=== PATIENT | male | born 1950 | race Caucasian/White ===

== ENCOUNTER 2016-11-10 12:35 | Emergency (ER) | payer OTHER, MEDICARE, BC ==
--- NOTE | 2016-11-10 13:43 | REP ---
CT Head without contrast HISTORY: Head injury COMPARISON: None Areas of decreased attenuation are present in the periventricular white matter. This represents small-vessel ischemic disease. There is no intraparenchymal hemorrhage, acute infarct, mass or midline shift. The ventricular system and cortical sulci are dilated consistent with minimal volume loss. There is no extra cerebral collection. There is no fracture. The visualized sinuses are clear. IMPRESSION: 1. Small vessel ischemic disease. 2. Minimal volume loss. Signed by Zuhair Trujillo MD 11/10/2016 01:34 P
--- NOTE | 2016-11-10 13:57 | REP ---
MAXILLOFACIAL CT WITHOUT CONTRAST: HISTORY: Facial injury. The sinuses are clear. The osteomeatal units are patent. The middle and inferior nasal turbinates are partially paradoxical. There is very minimal deviation of the nasal septum to the left. The cribriform plate, medial doss of the orbits and optic canals are intact. The carotid canals for a segment of the posterolateral doss of the sphenoid sinus. There is no fracture. Calcifications are present in the tonsils. This is secondary to previous inflammatory disease. IMPRESSION: There is no acute or chronic sinusitis. Signed by Zuhair Trujillo MD 11/10/2016 01:58 P
--- NOTE | 2016-11-10 14:27 | EDDOCDS ---
Nurse's Notes [facility] Name: John Brewer Age: 66 yrs Sex: Male : 1950 Arrival Date: 11/10/2016 Time: 12:35 Bed PR Private MD: DEBRA DELGADO Diagnosis: Fall due to ice and snow;Abrasion, right knee;Postconcussional syndrome Presentation: 11/10 12:38 Presenting complaint: Patient states: yesterday slipped and hit head and nose on a wall srm at [place]. headache all night. denies LOC. no blood thinners. Adult Sepsis Screening: The patient does not have new or worsening altered mentation. Patient's respiratory rate is less than 22. Systolic blood pressure is greater than 100. Patient has a qSOFA score of 0- Negative Sepsis Screen. Suicide/Homicide risk assessment- the patient denies having any suicidal and/or homicidal ideations and does not present with any other emotional, behavioral or mental health complaints. Status: Patient is not a account service associate or dependent. Transition of care: patient was not received from another setting of care. 12:38 Acuity: MEEK Level 4 [facility] 12:38 Method Of Arrival: Walkin/Carried/Asstd [facility] Triage Assessment: 12:42 General: Appears in no apparent distress, Behavior is appropriate for age, cooperative. srm Pain: Pain currently is 7 out of 10 on a pain scale. Derm: swelling and bruising to nose, forehead and bruising under left eye. Musculoskeletal: No deficits noted. Historical: - Allergies: no known allergies; - Home Meds: 1. metformin 1,000 mg Oral tr24 twice a day 2. atorvastatin 40 mg oral tab 1 tab once daily 3. doxazosin 2 mg oral tab 1 tab once daily 4. lisinopril 40 mg Oral tab 1 tab once daily 5. chlorthalidone 25 mg Oral tab 1 tab once daily 6. metoprolol 50mg daily 7. aspirin 81 mg Oral chew 1 tab once daily - PMHx: Diabetes - NIDDM: controlled; Hypercholesterolemia; Hypertension; Sleep Apnea w/ CPAP; - PSHx: CARPAL TUNNEL REPAIR; left knee; Vasectomy; - Social history: Smoking status: Patient states former smoker of tobacco. No barriers to communication noted, The patient speaks fluent Colombian, Speaks appropriately for age. - Family history: Not pertinent. - : The pt / caregiver states he / she is not on anticoagulants. Home medication list is obtained from the patient. - Exposure Risk Screening:: None identified. Screenin:24 Screening information is obtained from the patient. Fall risk: No risks identified. [facility] Assistance ADL's: requires no assistance with activities of daily living. Abuse/DV Screen: The patient / caregiver reports he/she is: not in a situation that causes fear, pain or injury. Nutritional screening: No deficits noted. Advance Directives: There is no active DNR order. home support is adequate. Assessment: 14:22 General: Appears in no apparent distress, Behavior is appropriate for age, cooperative, [facility] first contact with patient, reviewed discharge instructions, encouraged and answered questions, patient denies new problems or complaints, declines offer of further assistance. 14:24 Musculoskeletal: Range of motion intact in all extremities. [facility] Vital Signs: 12:36 BP 129 / 77; Pulse 97; Resp 18; Temp 97.5(O); Pulse Ox 97% on R/A; Weight 111.58 kg; elp Height 5 ft. 8 in. (172.72 cm); Pain 8/10; 14:24 BP 96 / 64; Pulse 85; Resp 16; Temp 97.6; Pulse Ox 96% ; Pain 6/10; [facility] 12:36 Body Mass Index 37.40 (111.58 kg, 172.72 cm) [facility] Vitals: 12:36 Log In Time: November 10, 2016 at 12:34. [facility] ED Course: 12:35 Patient visited by Tomeka Marlow PCA. elp 12:35 Patient moved to Waiting elp 12:36 DEBRA DELGADO is Private Physician. elp 12:37 Patient moved to Pre RCE elp 12:39 Triage Initiated srm 12:43 Patient moved to Triage 1 srm 12:49 [facility] dt4 12:49 Dakota Self MD is Attending Physician. dt4 12:49 Patient visited by Jada Reed PA-C. dt4 13:18 Patient moved to TR1 jb5 13:23 [facility] Payment Agreement was scanned into [employer] and attached to record. pm4 13:45 [facility] and attached to record. pm4 13:55 Patient visited by Jenny Segundo PCA. jb5 13:55 Patient moved to PR jb5 14:01 CT Head Without Contrast Returned. EDMS 14:01 CT Maxilofacial W/out Contrast Returned. EDMS 14:24 The patient / caregiver is instructed regarding the plan of care and ED course. [facility] 14:24 No IV's were initiated during this patient's visit. No procedures done that require [facility] assistance. Order Results: Radiology Order: CT Head Without Contrast Test: CT Head Without Contrast REASON FOR EXAMINATION: fall, head injury; CT Head without contrast; ; HISTORY: Head injury; ; COMPARISON: None; ; Areas of decreased attenuation are present in the periventricular white matter.; This represents small-vessel ischemic disease. There is no intraparenchymal; hemorrhage, acute infarct, mass or midline shift. The ventricular system and; cortical sulci are dilated consistent with minimal volume loss. There is no; extra cerebral collection. There is no fracture. The visualized sinuses are; clear.; ; IMPRESSION:; ; 1. Small vessel ischemic disease.; 2. Minimal volume loss.; ; ; Signed by; Zuhair Trujillo MD 11/10/2016 01:34 P; Radiology Order: CT Maxilofacial W/out Contrast Test: CT Maxilofacial W/out Contrast REASON FOR EXAMINATION: fall, facial injury, ?nasal fx; MAXILLOFACIAL CT WITHOUT CONTRAST:; ; HISTORY: Facial injury.; ; The sinuses are clear. The osteomeatal units are patent. The middle and inferior; nasal turbinates are partially paradoxical. There is very minimal deviation of; the nasal septum to the left. The cribriform plate, medial doss of the orbits; and optic canals are intact. The carotid canals for a segment of the; posterolateral doss of the sphenoid sinus. There is no fracture. Calcifications; are present in the tonsils. This is secondary to previous inflammatory disease.; ; IMPRESSION:; ; There is no acute or chronic sinusitis.; ; ; ; Unreviewed; Outcome: 14:08 Discharge ordered by Provider. dt4 14:24 Discharge Assessment: Patient awake, alert and oriented x 3. No cognitive and/or [facility] functional deficits noted. Patient verbalized understanding of disposition instructions. patient administered narcotics - no. The following High Risk Discharge criteria are identified: None. Discharged to home ambulatory. Condition: good Condition: stable Condition: improved. Discharge instructions given to patient, Instructed on discharge instructions, follow up and referral plans. Demonstrated understanding of instructions, medications, Pt was receptive of discharge instructions/ teaching. No special radiology studies were completed. Property :Personal belongings accompany Pt. 14:27 Patient left the ED. [facility] Signatures: Dispatcher [employer] EDMS Kristi Guzman RN RN srm Baker, Janet, OPERATIONS MGR OPERATIONS MGR jb5 Joan Dsouza RN RN [facility] Tomeka Marlow, OPERATIONS MGR OPERATIONS MGR elp Jada Reed, PA-C PA-C dt4 Anthony Lipscomb, Reg Reg pm4 Corrections: (The following items were deleted from the chart) 14:25 14:22 General: Appears in no apparent distress, [facility] MTDD
--- NOTE | 2016-11-10 14:27 | EDDOCDS ---
Physician Documentation [facility] Name: John Brewer Age: 66 yrs Sex: Male : 1950 Arrival Date: 11/10/2016 Time: 12:35 Bed PR Private MD: DEBRA DELGADO Disposition: 11/10/16 14:08 Discharged to Home/Self Care. Impression: Fall due to ice and snow, Abrasion, right knee, Postconcussional syndrome. - Condition is Stable. - Discharge Instructions: Abrasion, Post-Concussion Syndrome. - Medication Reconciliation, Local Pharmacy Hours form. - Follow up: Emergency Department; When: As needed; Reason: Worsening of conditions. Follow up: Private Physician; When: 2 - 3 days; Reason: Wound/Symptom Recheck, Recheck today's complaints, Continuance of care. - Problem is new. - Symptoms are unchanged. - Notes: THERE WAS NO ABNORMALITIES ON YOUR CT SCANS TODAY. PLEASE FOLLOW UP WITH YOUR PRIMARY CARE PROVIDER IN THE NEXT FEW DAYS TO RECHECK YOUR SYMPTOMS. ANY WORSENING SYMPTOMS, PLEASE RETURN TO THE ER. Historical: - Allergies: no known allergies; - Home Meds: 1. metformin 1,000 mg Oral tr24 twice a day 2. atorvastatin 40 mg oral tab 1 tab once daily 3. doxazosin 2 mg oral tab 1 tab once daily 4. lisinopril 40 mg Oral tab 1 tab once daily 5. chlorthalidone 25 mg Oral tab 1 tab once daily 6. metoprolol 50mg daily 7. aspirin 81 mg Oral chew 1 tab once daily - PMHx: Diabetes - NIDDM: controlled; Hypercholesterolemia; Hypertension; Sleep Apnea w/ CPAP; - PSHx: CARPAL TUNNEL REPAIR; left knee; Vasectomy; - Social history: Smoking status: Patient states former smoker of tobacco. No barriers to communication noted, The patient speaks fluent Arabic, Speaks appropriately for age. - Family history: Not pertinent. - : The pt / caregiver states he / she is not on anticoagulants. Home medication list is obtained from the patient. - Exposure Risk Screening:: None identified. Vital Signs: 11/10 12:36 BP 129 / 77; Pulse 97; Resp 18; Temp 97.5(O); Pulse Ox 97% on R/A; Weight 111.58 kg / elp 245.99 lbs; Height 5 ft. 8 in. (172.72 cm); Pain 8/10; 14:24 BP 96 / 64; Pulse 85; Resp 16; Temp 97.6; Pulse Ox 96% ; Pain 6/10; cjh 12:36 Body Mass Index 37.40 (111.58 kg, 172.72 cm) elp MDM: 13:21 CT Head Without Contrast Ordered. EDMS 13:21 CT Maxilofacial W/out Contrast Ordered. EDMS 13:22 Financial registration complete. pm4 13:23 [facility] Payment Agreement was scanned into [employer] and attached to record. pm4 13:45 [facility] Payment Agreement was scanned into [employer] and attached to record. pm4 Signatures: Dispatcher [employer] EDKristi Crews RN RN [facility] Joan Dsouza RN RN [facility] Jada Reed, PALambertC PA-C dt4 Anthony Lipscomb, Reg Reg pm4 The chart was reviewed and I authenticate all verbal orders and agree with the evaluation and treatment provided.Attachments: 13:23 [facility] Payment Agreement pm4 13:45 [facility] Payment Agreement pm4 MTDD
--- NOTE | 2016-11-14 09:15 | EDDOCDS ---
Physician Documentation [facility] Name: John Brewer Age: 66 yrs Sex: Male : 1950 Arrival Date: 11/10/2016 Time: 12:35 Bed PR Private MD: DEBRA DELGADO Disposition: 11/10/16 14:08 Discharged to Home/Self Care. Impression: Fall due to ice and snow, Abrasion, right knee, Postconcussional syndrome. - Condition is Stable. - Discharge Instructions: Abrasion, Post-Concussion Syndrome. - Medication Reconciliation, Local Pharmacy Hours form. - Follow up: Emergency Department; When: As needed; Reason: Worsening of conditions. Follow up: Private Physician; When: 2 - 3 days; Reason: Wound/Symptom Recheck, Recheck today's complaints, Continuance of care. - Problem is new. - Symptoms are unchanged. - Notes: THERE WAS NO ABNORMALITIES ON YOUR CT SCANS TODAY. PLEASE FOLLOW UP WITH YOUR PRIMARY CARE PROVIDER IN THE NEXT FEW DAYS TO RECHECK YOUR SYMPTOMS. ANY WORSENING SYMPTOMS, PLEASE RETURN TO THE ER. Historical: - Allergies: no known allergies; - Home Meds: 1. metformin 1,000 mg Oral tr24 twice a day 2. atorvastatin 40 mg oral tab 1 tab once daily 3. doxazosin 2 mg oral tab 1 tab once daily 4. lisinopril 40 mg Oral tab 1 tab once daily 5. chlorthalidone 25 mg Oral tab 1 tab once daily 6. metoprolol 50mg daily 7. aspirin 81 mg Oral chew 1 tab once daily - PMHx: Diabetes - NIDDM: controlled; Hypercholesterolemia; Hypertension; Sleep Apnea w/ CPAP; - PSHx: CARPAL TUNNEL REPAIR; left knee; Vasectomy; - Social history: Smoking status: Patient states former smoker of tobacco. No barriers to communication noted, The patient speaks fluent Upper Sorbian, Speaks appropriately for age. - Family history: Not pertinent. - : The pt / caregiver states he / she is not on anticoagulants. Home medication list is obtained from the patient. - Exposure Risk Screening:: None identified. Vital Signs: 11/10 12:36 BP 129 / 77; Pulse 97; Resp 18; Temp 97.5(O); Pulse Ox 97% on R/A; Weight 111.58 kg / elp 245.99 lbs; Height 5 ft. 8 in. (172.72 cm); Pain 8/10; 14:24 BP 96 / 64; Pulse 85; Resp 16; Temp 97.6; Pulse Ox 96% ; Pain 6/10; cjh 12:36 Body Mass Index 37.40 (111.58 kg, 172.72 cm) elp MDM: 13:21 CT Head Without Contrast Ordered. EDMS 13:21 CT Maxilofacial W/out Contrast Ordered. EDMS 13:22 Financial registration complete. pm4 13:23 [facility] Payment Agreement was scanned into [employer] and attached to record. pm4 13:45 [facility] Payment Agreement was scanned into [employer] and attached to record. pm4 11/11 09:52 T-Sheet-- Draft Copy was scanned into [employer] and attached to record. gb Signatures: Dispatcher [employer] EDKristi Crews, RN T[facility] Anabell Malloy, Reg Reg gb Joan Dsouza RN RN [facility] Jada Reed PA-C PASerena dt4 Anthony Lipscomb, Reg Reg pm4 The chart was reviewed and I authenticate all verbal orders and agree with the evaluation and treatment provided.Attachments: 13:45 [facility] Payment Agreement pm4 11/11 09:52 T-Sheet-- Draft Copy gb Chart Complete MTDD
--- NOTE | 2016-11-14 09:15 | EDDOCDS ---
Physician Documentation [facility] Name: John Brewer Age: 66 yrs Sex: Male : 1950 Arrival Date: 11/10/2016 Time: 12:35 Bed PR Private MD: DEBRA DELGADO Disposition: 11/10/16 14:08 Discharged to Home/Self Care. Impression: Fall due to ice and snow, Abrasion, right knee, Postconcussional syndrome. - Condition is Stable. - Discharge Instructions: Abrasion, Post-Concussion Syndrome. - Medication Reconciliation, Local Pharmacy Hours form. - Follow up: Emergency Department; When: As needed; Reason: Worsening of conditions. Follow up: Private Physician; When: 2 - 3 days; Reason: Wound/Symptom Recheck, Recheck today's complaints, Continuance of care. - Problem is new. - Symptoms are unchanged. - Notes: THERE WAS NO ABNORMALITIES ON YOUR CT SCANS TODAY. PLEASE FOLLOW UP WITH YOUR PRIMARY CARE PROVIDER IN THE NEXT FEW DAYS TO RECHECK YOUR SYMPTOMS. ANY WORSENING SYMPTOMS, PLEASE RETURN TO THE ER. Historical: - Allergies: no known allergies; - Home Meds: 1. metformin 1,000 mg Oral tr24 twice a day 2. atorvastatin 40 mg oral tab 1 tab once daily 3. doxazosin 2 mg oral tab 1 tab once daily 4. lisinopril 40 mg Oral tab 1 tab once daily 5. chlorthalidone 25 mg Oral tab 1 tab once daily 6. metoprolol 50mg daily 7. aspirin 81 mg Oral chew 1 tab once daily - PMHx: Diabetes - NIDDM: controlled; Hypercholesterolemia; Hypertension; Sleep Apnea w/ CPAP; - PSHx: CARPAL TUNNEL REPAIR; left knee; Vasectomy; - Social history: Smoking status: Patient states former smoker of tobacco. No barriers to communication noted, The patient speaks fluent Hebrew, Speaks appropriately for age. - Family history: Not pertinent. - : The pt / caregiver states he / she is not on anticoagulants. Home medication list is obtained from the patient. - Exposure Risk Screening:: None identified. Vital Signs: 11/10 12:36 BP 129 / 77; Pulse 97; Resp 18; Temp 97.5(O); Pulse Ox 97% on R/A; Weight 111.58 kg / elp 245.99 lbs; Height 5 ft. 8 in. (172.72 cm); Pain 8/10; 14:24 BP 96 / 64; Pulse 85; Resp 16; Temp 97.6; Pulse Ox 96% ; Pain 6/10; cjh 12:36 Body Mass Index 37.40 (111.58 kg, 172.72 cm) elp MDM: 13:21 CT Head Without Contrast Ordered. EDMS 13:21 CT Maxilofacial W/out Contrast Ordered. EDMS 13:22 Financial registration complete. pm4 13:23 [facility] Payment Agreement was scanned into [employer] and attached to record. pm4 13:45 [facility] Payment Agreement was scanned into [employer] and attached to record. pm4 11/11 09:52 T-Sheet-- Draft Copy was scanned into [employer] and attached to record. gb Signatures: Dispatcher [employer] EDKristi Crews, RN TONE[facility] Anabell Malloy, Reg Reg gb Joan Dsouza RN RN [facility] Jada Reed PA-C PASerena dt4 Anthony Lipscomb, Reg Reg pm4 The chart was reviewed and I authenticate all verbal orders and agree with the evaluation and treatment provided.Attachments: 13:45 [facility] Payment Agreement pm4 11/11 09:52 T-Sheet-- Draft Copy gb Chart Complete MTDD
--- NOTE | 2016-11-14 09:15 | EDDOCDS ---
Nurse's Notes [facility] Name: John Brewer Age: 66 yrs Sex: Male : 1950 Arrival Date: 11/10/2016 Time: 12:35 Bed PR Private MD: DEBRA DELGADO Diagnosis: Fall due to ice and snow;Abrasion, right knee;Postconcussional syndrome Presentation: 11/10 12:38 Presenting complaint: Patient states: yesterday slipped and hit head and nose on a wall srm at [place]. headache all night. denies LOC. no blood thinners. Adult Sepsis Screening: The patient does not have new or worsening altered mentation. Patient's respiratory rate is less than 22. Systolic blood pressure is greater than 100. Patient has a qSOFA score of 0- Negative Sepsis Screen. Suicide/Homicide risk assessment- the patient denies having any suicidal and/or homicidal ideations and does not present with any other emotional, behavioral or mental health complaints. Status: Patient is not a learning services coordinator or dependent. Transition of care: patient was not received from another setting of care. 12:38 Acuity: MEEK Level 4 [facility] 12:38 Method Of Arrival: Walkin/Carried/Asstd [facility] Triage Assessment: 12:42 General: Appears in no apparent distress, Behavior is appropriate for age, cooperative. srm Pain: Pain currently is 7 out of 10 on a pain scale. Derm: swelling and bruising to nose, forehead and bruising under left eye. Musculoskeletal: No deficits noted. Historical: - Allergies: no known allergies; - Home Meds: 1. metformin 1,000 mg Oral tr24 twice a day 2. atorvastatin 40 mg oral tab 1 tab once daily 3. doxazosin 2 mg oral tab 1 tab once daily 4. lisinopril 40 mg Oral tab 1 tab once daily 5. chlorthalidone 25 mg Oral tab 1 tab once daily 6. metoprolol 50mg daily 7. aspirin 81 mg Oral chew 1 tab once daily - PMHx: Diabetes - NIDDM: controlled; Hypercholesterolemia; Hypertension; Sleep Apnea w/ CPAP; - PSHx: CARPAL TUNNEL REPAIR; left knee; Vasectomy; - Social history: Smoking status: Patient states former smoker of tobacco. No barriers to communication noted, The patient speaks fluent Macanese, Speaks appropriately for age. - Family history: Not pertinent. - : The pt / caregiver states he / she is not on anticoagulants. Home medication list is obtained from the patient. - Exposure Risk Screening:: None identified. Screenin:24 Screening information is obtained from the patient. Fall risk: No risks identified. [facility] Assistance ADL's: requires no assistance with activities of daily living. Abuse/DV Screen: The patient / caregiver reports he/she is: not in a situation that causes fear, pain or injury. Nutritional screening: No deficits noted. Advance Directives: There is no active DNR order. home support is adequate. Assessment: 14:22 General: Appears in no apparent distress, Behavior is appropriate for age, cooperative, [facility] first contact with patient, reviewed discharge instructions, encouraged and answered questions, patient denies new problems or complaints, declines offer of further assistance. 14:24 Musculoskeletal: Range of motion intact in all extremities. [facility] Vital Signs: 12:36 BP 129 / 77; Pulse 97; Resp 18; Temp 97.5(O); Pulse Ox 97% on R/A; Weight 111.58 kg; elp Height 5 ft. 8 in. (172.72 cm); Pain 8/10; 14:24 BP 96 / 64; Pulse 85; Resp 16; Temp 97.6; Pulse Ox 96% ; Pain 6/10; [facility] 12:36 Body Mass Index 37.40 (111.58 kg, 172.72 cm) [facility] Vitals: 12:36 Log In Time: November 10, 2016 at 12:34. [facility] ED Course: 12:35 Patient visited by Tomeka Marlow PCA. elp 12:35 Patient moved to Waiting elp 12:36 DEBRA DELGADO is Private Physician. elp 12:37 Patient moved to Pre RCE elp 12:39 Triage Initiated srm 12:43 Patient moved to Triage 1 srm 12:49 [facility] dt[facility] 12:49 Dakota Self MD is Attending Physician. dt4 12:49 Patient visited by Jada Reed PA-C. dt4 13:18 Patient moved to TR1 jb5 13:23 [facility] Payment Agreement was scanned into [employer] and attached to record. pm4 13:45 [facility] Payment Agreement was scanned into [employer] [facility] [employer] and attached to record. pm4 13:55 Patient visited by Jenny Segundo PCA. jb5 13:55 Patient moved to PR jb5 14:01 CT Head Without Contrast Returned. EDMS 14:01 CT Maxilofacial W/out Contrast Returned. EDMS 14:24 The patient / caregiver is instructed regarding the plan of care and ED course. [facility] 14:24 No IV's were initiated during this patient's visit. No procedures done that require [facility] assistance. 11/11 09:52 T-Sheet-- Draft Copy was scanned into [employer] and attached to record. gb Order Results: Radiology Order: CT Head Without Contrast Test: CT Head Without Contrast REASON FOR EXAMINATION: fall, head injury; CT Head without contrast; ; HISTORY: Head injury; ; COMPARISON: None; ; Areas of decreased attenuation are present in the periventricular white matter.; This represents small-vessel ischemic disease. There is no intraparenchymal; hemorrhage, acute infarct, mass or midline shift. The ventricular system and; cortical sulci are dilated consistent with minimal volume loss. There is no; extra cerebral collection. There is no fracture. The visualized sinuses are; clear.; ; IMPRESSION:; ; 1. Small vessel ischemic disease.; 2. Minimal volume loss.; ; ; Signed by; Zuhair Trujillo MD 11/10/2016 01:34 P; Radiology Order: CT Maxilofacial W/out Contrast Test: CT Maxilofacial W/out Contrast REASON FOR EXAMINATION: fall, facial injury, ?nasal fx; MAXILLOFACIAL CT WITHOUT CONTRAST:; ; HISTORY: Facial injury.; ; The sinuses are clear. The osteomeatal units are patent. The middle and inferior; nasal turbinates are partially paradoxical. There is very minimal deviation of; the nasal septum to the left. The cribriform plate, medial doss of the orbits; and optic canals are intact. The carotid canals for a segment of the; posterolateral doss of the sphenoid sinus. There is no fracture. Calcifications; are present in the tonsils. This is secondary to previous inflammatory disease.; ; IMPRESSION:; ; There is no acute or chronic sinusitis.; ; ; Signed by; Zuhair Trujillo MD 11/10/2016 01:58 P; Outcome: 11/10 14:08 Discharge ordered by Provider. dt4 14:24 Discharge Assessment: Patient awake, alert and oriented x 3. No cognitive and/or [facility] functional deficits noted. Patient verbalized understanding of disposition instructions. patient administered narcotics - no. The following High Risk Discharge criteria are identified: None. Discharged to home ambulatory. Condition: good Condition: stable Condition: improved. Discharge instructions given to patient, Instructed on discharge instructions, follow up and referral plans. Demonstrated understanding of instructions, medications, Pt was receptive of discharge instructions/ teaching. No special radiology studies were completed. Property :Personal belongings accompany Pt. 14:27 Patient left the ED. [facility] Signatures: Dispatcher [employer] EDMS Kristi Guzman, RN RN [facility] Anabell Malloy, Reg Reg gb Jenny Segundo, AUTO DESIGN DETAILER AUTO DESIGN DETAILER jb5 Joan Dsouza RN RN [facility] Tomeka Marlow, AUTO DESIGN DETAILER AUTO DESIGN DETAILER vishnup Jada Reed, PASerena PASerena dt4 Anthony Lipscomb, Reg Reg pm4 Corrections: (The following items were deleted from the chart) 14:25 14:22 General: Appears in no apparent distress, [facility] Chart Complete MTDD
== END 2016-11-10 14:27 | disposition home or self-care (01) ==
LOC: M ED 12:35
DX: S00.83XA Contusion of other part of head, initial encounter (principal); F07.81 Postconcussional syndrome; S80.211A Abrasion, right knee, initial encounter; W00.9XXA Unspecified fall due to ice and snow, initial encounter; Y93.9 Activity, unspecified; Y92.524 Gas station as the place of occurrence of the external cause; Y99.9 Unspecified external cause status; E11.9 Type 2 diabetes mellitus without complications; E78.00 Pure hypercholesterolemia, unspecified; I10 Essential (primary) hypertension; G47.30 Sleep apnea, unspecified; Z87.891 Personal history of nicotine dependence; Z79.82 Long term (current) use of aspirin; Z79.899 Other long term (current) drug therapy

== ENCOUNTER → 2017-06-14 | Outpatient (CLI) | payer MEDICARE, BC ==
[~2017-06-14] MED LIST: ATOR40TA75 PO; CHLO25TA PO; DOXA1TAB71 PO; GLIP1TAB49 PO; LISI40TAB PO; METF10004 PO; METO50TA7 PO
== END ==
LOC: M LAB 06:19
PROVIDERS: ATTEND Family Medicine
DX: E11.9 Type 2 diabetes mellitus without complications (principal)

== ENCOUNTER → 2017-07-19 | Outpatient (CLI) | payer MEDICARE, BC | LOC: M LAB 08:02 | PROVIDERS: ATTEND Hospitalist | DX: Z00.00 Encounter for general adult medical examination without abnormal findings (principal) ==

== ENCOUNTER → 2018-03-26 | Outpatient (CLI) | payer MEDICARE, BC ==
[2018-03-26 08:53] LABS: ALBUMIN 3.7 GM/DL (3.2-5.2); ALBUMIN/GLOBULIN RATIO 1.19 (1.00-1.93); ALKALINE PHOSPHATASE 118 U/L (45-117); ALT/SGPT 23 U/L (12-78); ANION GAP 8 MEQ/L (8-16); AST/SGOT 19 U/L (7-37); BILIRUBIN,TOTAL 0.4 MG/DL (0.2-1.0); BLOOD UREA NITROGEN 27 MG/DL (7-18); CALCIUM LEVEL 8.9 MG/DL (8.8-10.2); CARBON DIOXIDE LEVEL 26 MEQ/L (21-32); CHLORIDE LEVEL 107 MEQ/L (98-107); CREATININE FOR GFR 0.92 MG/DL (0.70-1.30); GLOMERULAR FILTRATION RATE > 60.0 (>49); GLUCOSE, FASTING 132 MG/DL (70-100); POTASSIUM SERUM 4.1 MEQ/L (3.5-5.1); SODIUM LEVEL 141 MEQ/L (136-145); TOTAL PROTEIN 6.8 GM/DL (6.4-8.2)
[2018-03-26 08:54] LABS: MALB URINE SIEMENS 13.3 MG/L; MAU/CREAT RATIO 11.2 MCG/MG (0.0-30.0)
[2018-03-26 09:36] LABS: ESTIMATED AVERAGE GLUCOSE 151 MG/DL (60-110); HEMOGLOBIN A1c 6.9 %
== END ==
LOC: M LAB 06:38
DX: I10 Essential (primary) hypertension (principal); E11.65 Type 2 diabetes mellitus with hyperglycemia
CPT/HCPCS: 80053

== ENCOUNTER → 2018-08-06 | Outpatient (CLI) | payer MEDICARE, BC ==
[2018-08-06 08:01] LABS: ESTIMATED AVERAGE GLUCOSE 140 MG/DL (60-110); HEMOGLOBIN A1c 6.5 %
[2018-08-06 08:03] LABS: MALB URINE SIEMENS 16.2 MG/L
[2018-08-06 08:07] LABS: MAU/CREAT RATIO 15.1 MCG/MG (0.0-30.0)
== END ==
LOC: M LAB 06:43
DX: E11.9 Type 2 diabetes mellitus without complications (principal)
CPT/HCPCS: 83036

== ENCOUNTER → 2021-10-10 | Outpatient (CLI) | payer MEDICARE, BC ==
[~2021-10-10] MED LIST changes: -DOXA1TAB71 PO; +DOXA2TAB3 PO; -GLIP1TAB49 PO; +GLIP5TAB20 PO; +ISOVUE-300 61% 50ML VIAL As Ordered ONE; +LIDOCAINE 1% MDV 20ML VIAL As Ordered ONE; +LISI40TA4 PO; -LISI40TAB PO; +TRIAMCINOLONE ACETONIDE SUSP 40 MG/ML VIAL (J3301) As Ordered ONE
--- NOTE | 2021-10-10 13:43 | REP ---
INDICATION: OSTEOARTHRITIS. COMPARISON: None TECHNIQUE: The procedure was performed by MAYITO Frye, under the direct supervision of Dr. Mills. The benefits and risks of the procedure were explained to the patient, and an informed consent was obtained. Directly prior to the start of the procedure, a formal time-out was completed in the procedure room. The right shoulder joint space was localized using fluoroscopic guidance. The skin was prepped and draped in a sterile fashion. Approximately 5 mL of 1% Lidocaine 10 mg/ml was used as a local anesthetic. Using fluoroscopic guidance, a #22 gauge spinal needle was inserted and advanced into the right shoulder joint space. Approximately 3 mL of Isovue 300 was injected to verify placement. Six mL of a solution containing 5 mL 1% lidocaine 10 mg/ml and 1 mL Kenalog 40 mg/mL was injected into the joint space. The needle was removed and hemostasis was achieved. FINDINGS: The patient tolerated the procedure well and there were no immediate complications. IMPRESSION: 1. Technically successful right shoulder injection. 0.1 minutes of fluoroscopy time was utilized for this procedure. Some fluoroscopic images are performed with last image hold technology. These images require no additional radiation. <Electronically signed by Valerie Merritt > 10/10/21 1328 <Electronically signed by Osman Mills > 10/10/21 [id number]
== END ==
LOC: M RADPRO 10:36
PROVIDERS: ATTEND Physician Assistant
DX: M19.011 Primary osteoarthritis, right shoulder (principal)
CPT/HCPCS: 20610; 77002; J3301; Q9967

== ENCOUNTER → 2022-03-03 | Outpatient (CLI) | payer MEDICARE, BC ==
[~2022-03-03] MED LIST changes: -ISOVUE-300 61% 50ML VIAL As Ordered ONE; -LIDOCAINE 1% MDV 20ML VIAL As Ordered ONE; -TRIAMCINOLONE ACETONIDE SUSP 40 MG/ML VIAL (J3301) As Ordered ONE
[2022-03-03 11:32] LABS: HEMATOCRIT 40.9 % (42.0-52.0); HEMOGLOBIN 13.4 g/dl (13.5-17.5); MEAN CORPUSCULAR HEMOGLOBIN 28.5 pg (27.0-33.0); MEAN CORPUSCULAR HGB CONC 32.8 g/dl (32.0-36.5); MEAN CORPUSCULAR VOLUME 86.8 fl (80.0-96.0); PLATELET COUNT, AUTOMATED 196 10^3/uL (150-450); RED BLOOD COUNT 4.71 10^6/uL (4.30-6.10); WHITE BLOOD COUNT 8.9 10^3/uL (4.0-10.0)
[2022-03-03 12:01] LABS: BLOOD UREA NITROGEN 31 MG/DL (7-18); CALCIUM LEVEL 9.3 MG/DL (8.8-10.2); CARBON DIOXIDE LEVEL 30 MEQ/L (21-32); CHLORIDE LEVEL 106 MEQ/L (98-107); CREATININE FOR GFR 1.14 MG/DL (0.70-1.30); GLOMERULAR FILTRATION RATE > 60.0 (>42); GLUCOSE, FASTING 171 MG/DL (70-100); POTASSIUM SERUM 4.8 MEQ/L (3.5-5.1); SODIUM LEVEL 139 MEQ/L (136-145)
== END ==
LOC: M EKG 10:43
PROVIDERS: ATTEND Orthopaedic Surgery
DX: M43.16 Spondylolisthesis, lumbar region (principal)

== ENCOUNTER 2022-03-20 11:29 | Inpatient (IN) | payer MEDICARE, BC ==
[~2022-03-20] VITALS: Ht 172.7 cm; Wt 109.1 kg
[2022-03-20 13:01] LABS: BASO % 0.2 % (0.0-1.0); EOS % 0.2 % (0.0-3.0); HEMATOCRIT 33.7 % (42.0-52.0); HEMOGLOBIN 10.9 g/dl (13.5-17.5); LYMPH # 1.2 10^3/uL (1.5-5.0); LYMPH % 12.6 % (24.0-44.0); MEAN CORPUSCULAR HEMOGLOBIN 28.6 pg (27.0-33.0); MEAN CORPUSCULAR HGB CONC 32.3 g/dl (32.0-36.5); MEAN CORPUSCULAR VOLUME 88.5 fl (80.0-96.0); MONO # 0.9 10^3/uL (0.0-0.8); MONO % 9.5 % (2.0-8.0); NEUTROPHILS # 7.1 10^3/uL (1.5-8.5); PLATELET COUNT, AUTOMATED 190 10^3/uL (150-450); RED BLOOD COUNT 3.81 10^6/uL (4.30-6.10); WHITE BLOOD COUNT 9.3 10^3/uL (4.0-10.0)
[2022-03-20 13:39] LABS: BILIRUBIN,TOTAL 0.8 MG/DL (0.2-1.0); C REACTIVE PROTEIN QUANTITATIV 22.4 MG/DL (0.00-0.30); CALCIUM LEVEL 8.9 MG/DL (8.8-10.2); CREATININE FOR GFR 1.28 MG/DL (0.70-1.30); POTASSIUM SERUM 4.3 MEQ/L (3.5-5.1); TOTAL PROTEIN 6.4 GM/DL (6.4-8.2)
[2022-03-20 14:05] LABS: ERYTHROCYTE SEDIMENTATION RATE 75 mm/hr (0-20)
[2022-03-20] MEDS ORDERED: GI COCKTAIL 50ML BTL(HYOSCYAMINE/MAALOX/LIDOCAINE VISCOUS)(1:3:1) PO ONE (16:15)
[2022-03-20] MEDS ORDERED: diazePAM 2 MG TAB PO ONE (17:25)
[2022-03-20 19:30] LABS: RSV AMPLIFICATION NEGATIVE (NEGATIVE)
[2022-03-20] MEDS: HumaLOG INSULIN (NovoLOG) PER UNIT SC SCH (21:00)
[2022-03-20] MEDS ORDERED: OXYC1TAB23 PO (21:21)
[2022-03-20] MEDS ORDERED: GLUCOSE 4GM CHEW TABLET PO PRN (21:35)
[2022-03-20] MEDS ORDERED: ACETAMINOPHEN TAB 650MG DOSE (2X325MG) PO PRN (21:35)
[2022-03-20] MEDS ORDERED: GLUCAGON INJ 1MG VIAL SC PRN (21:35)
[2022-03-20] MEDS ORDERED: DEXTROSE 50% 50 ML SYRINGE IV PRN (21:35)
[2022-03-20] MEDS ORDERED: GABA800T4 PO (23:08)
[2022-03-20] MEDS ORDERED: TOPR50TA PO (23:08)
[2022-03-20] MEDS ORDERED: OXYC-517 PO (23:08)
[2022-03-20] MEDS ORDERED: ADV250INH INH (23:08)
[2022-03-20] MEDS ORDERED: ALBU8.5H INH (23:08)
[2022-03-20] MEDS ORDERED: FINA5TAB2 PO (23:08)
[2022-03-20] MEDS ORDERED: ASPI-161 PO (23:08)
[2022-03-20] MEDS ORDERED: HOME MED LIST COMPLETE! XX SCH (23:10)
[2022-03-20 23:17] VITALS: BP 142/63
[2022-03-21] MEDS ORDERED: ADVAIR HFA 115/21MCG INHALER INH PRN (00:10)
[2022-03-21] MEDS ORDERED: ALBUTEROL 90 MCG/ACT 8GM HFA INHALER INH PRN (00:10)
[2022-03-21] MEDS ORDERED: NS 1,000 ML IV ONE (00:15)
[2022-03-21 00:36] VITALS: BP 138/66
[2022-03-21] MEDS: lisinopriL 40MG TAB PO SCH ×2 (00:59→21:29)
[2022-03-21] MEDS: ATORVASTATIN 20 MG TAB PO SCH ×2 (00:59→21:29)
[2022-03-21] MEDS: HYDROMORPHONE HCL 0.5 MG/ 0.5 ML SYRINGE (J1170 PER 1) IV PRN ×2 (02:10→05:36)
[2022-03-21] MEDS ORDERED: GABAPENTIN 400MG CAP PO ONE (02:45)
[2022-03-21] MEDS: HEPARIN SOD (PORCINE) 5000UNITS/ML 1ML VIAL/SYRINGE SC SCH ×3 (05:34→21:29)
[2022-03-21 06:00] VITALS: BP 134/70
[2022-03-21 07:07] LABS: BLOOD UREA NITROGEN 24 MG/DL (7-18); CALCIUM LEVEL 8.5 MG/DL (8.8-10.2); CARBON DIOXIDE LEVEL 28 MEQ/L (21-32); CHLORIDE LEVEL 106 MEQ/L (98-107); CREATININE FOR GFR 0.98 MG/DL (0.70-1.30); GLOMERULAR FILTRATION RATE > 60.0 (>42); GLUCOSE, FASTING 141 MG/DL (70-100); POTASSIUM SERUM 3.8 MEQ/L (3.5-5.1); SODIUM LEVEL 138 MEQ/L (136-145)
[2022-03-21] MEDS ORDERED: GABAPENTIN 400MG CAP PO SCH ×2 (09:00→16:00)
[2022-03-21] MEDS: ASPIRIN 81MG ENTERIC TABLET PO SCH (09:11)
[2022-03-21] MEDS: FINASTERIDE 5MG TAB PO SCH (09:11)
[2022-03-21] MEDS: HumaLOG INSULIN (NovoLOG) PER UNIT SC SCH ×4 (09:11→21:00)
[2022-03-21] MEDS: DOXAZOSIN MESYLATE 1 MG TAB PO SCH (09:11)
[2022-03-21] MEDS: CHLORTHALIDONE 12.5MG PER 1/2 TABLET PO SCH (09:11)
[2022-03-21] MEDS: METOPROLOL SUCC (TopROL XL) 50MG **XL** TAB PO SCH (09:12)
[2022-03-21] MEDS: oxyCODONE 5MG TAB PO PRN (10:13)
[2022-03-21 14:00] VITALS: BP 120/69
[2022-03-21] MEDS: GABAPENTIN 300 MG CAP PO SCH ×2 (15:14→21:29)
[2022-03-21] MEDS ORDERED: SENOKOT S TAB PO PRN (15:50)
[2022-03-21 22:00] VITALS: BP 141/73
[2022-03-22] MEDS: oxyCODONE 5MG TAB PO PRN (00:28)
[2022-03-22 06:00] VITALS: BP 114/69
[2022-03-22 06:26] LABS: BASO % 0.5 % (0.0-1.0); EOS # 0.1 10^3/uL (0.0-0.5); EOS % 1.5 % (0.0-3.0); HEMATOCRIT 31.5 % (42.0-52.0); LYMPH # 1.5 10^3/uL (1.5-5.0); MEAN CORPUSCULAR HEMOGLOBIN 28.3 pg (27.0-33.0); MEAN CORPUSCULAR HGB CONC 31.7 g/dl (32.0-36.5); MEAN CORPUSCULAR VOLUME 89.2 fl (80.0-96.0); MONO # 0.7 10^3/uL (0.0-0.8); MONO % 11.1 % (2.0-8.0); NEUTROPHILS # 3.7 10^3/uL (1.5-8.5); NEUTROPHILS % 61.4 % (36.0-66.0); PLATELET COUNT, AUTOMATED 212 10^3/uL (150-450); RED BLOOD COUNT 3.53 10^6/uL (4.30-6.10)
[2022-03-22] MEDS: HEPARIN SOD (PORCINE) 5000UNITS/ML 1ML VIAL/SYRINGE SC SCH ×2 (06:36→14:00)
[2022-03-22 06:48] LABS: BLOOD UREA NITROGEN 36 MG/DL (7-18); CALCIUM LEVEL 8.6 MG/DL (8.8-10.2); CARBON DIOXIDE LEVEL 28 MEQ/L (21-32); CHLORIDE LEVEL 105 MEQ/L (98-107); CREATININE FOR GFR 1.24 MG/DL (0.70-1.30); GLOMERULAR FILTRATION RATE > 60.0 (>42); GLUCOSE, FASTING 186 MG/DL (70-100); MAGNESIUM LEVEL 2.3 MG/DL (1.8-2.4); POTASSIUM SERUM 3.9 MEQ/L (3.5-5.1); SODIUM LEVEL 138 MEQ/L (136-145)
[2022-03-22] MEDS ORDERED: BISACODYL 10 MG SUPP PR ONE (07:15)
[2022-03-22] MEDS: HumaLOG INSULIN (NovoLOG) PER UNIT SC SCH ×2 (08:09→12:43)
[2022-03-22] MEDS: CHLORTHALIDONE 12.5MG PER 1/2 TABLET PO SCH (08:10)
[2022-03-22] MEDS: DOXAZOSIN MESYLATE 1 MG TAB PO SCH (08:12)
[2022-03-22] MEDS: ASPIRIN 81MG ENTERIC TABLET PO SCH (08:13)
[2022-03-22 08:14] VITALS: BP 160/84
[2022-03-22] MEDS: METOPROLOL SUCC (TopROL XL) 50MG **XL** TAB PO SCH (08:14)
[2022-03-22] MEDS: FINASTERIDE 5MG TAB PO SCH (08:14)
[2022-03-22] MEDS ORDERED: GABAPENTIN 400MG CAP PO SCH (09:00)
[2022-03-22] MEDS ORDERED: MM S100C PO (10:59)
[2022-03-22] MEDS ORDERED: MIRA3350 PO (10:59)
== END 2022-03-22 14:35 | disposition home or self-care (01) | DRG 71 ==
LOC: M ED 11:29 → M ED INP 20:47 → ENRESERV 21:44 → M MSPAV 22:46
PROVIDERS: ADMIT Internal Medicine; ATTEND Internal Medicine
DX: G93.40 Encephalopathy, unspecified (principal); F19.230 Other psychoactive substance dependence with withdrawal, uncomplicated; E11.9 Type 2 diabetes mellitus without complications; I12.9 Hypertensive chronic kidney disease with stage 1 through stage 4 chronic kidney disease, or unspecified chronic kidney disease; J45.909 Unspecified asthma, uncomplicated; E78.00 Pure hypercholesterolemia, unspecified; M54.16 Radiculopathy, lumbar region; N18.30 Chronic kidney disease, stage 3 unspecified; Z79.82 Long term (current) use of aspirin; Z79.899 Other long term (current) drug therapy; K59.00 Constipation, unspecified

== ENCOUNTER → 2022-08-23 | Outpatient (CLI) | payer MEDICARE, BC ==
[~2022-08-23] MED LIST changes: +ADV250INH INH; +ALBU8.5H INH; +ASPI-161 PO; +FINA5TAB2 PO; +GABA800T4 PO; +ISOVUE-300 61% 50ML VIAL ONE; +LIDOCAINE 1% MDV 20ML VIAL ONE; +MIRA3350 PO; +MM S100C PO; +OXYC-517 PO; +OXYC1TAB23 PO; +TOPR50TA PO; +methylPREDNISolone SUSP 40MG/ML 1ML VIAL (DEPO MEDROL) ONE
== END ==
LOC: M PLAIMG 14:24 → M RADPRO 14:24
PROVIDERS: ATTEND Physician Assistant
DX: M16.11 Unilateral primary osteoarthritis, right hip (principal)
CPT/HCPCS: 20610; 76000; J1030; Q9967

== ENCOUNTER → 2022-12-11 | Outpatient (CLI) | payer MEDICARE, BC ==
[~2022-12-11] MED LIST changes: -ISOVUE-300 61% 50ML VIAL ONE; -LIDOCAINE 1% MDV 20ML VIAL ONE; -methylPREDNISolone SUSP 40MG/ML 1ML VIAL (DEPO MEDROL) ONE
== END ==
LOC: M LAB 10:30
PROVIDERS: ATTEND Nurse Practitioner Family
DX: R15.9 Full incontinence of feces (principal); R19.7 Diarrhea, unspecified

== ENCOUNTER → 2023-01-04 | Outpatient (CLI) | payer MEDICARE, BC | LOC: M LABSMTC 09:16 | PROVIDERS: ATTEND Anesthesiology | DX: Z01.812 Encounter for preprocedural laboratory examination (principal) ==

== ENCOUNTER 2023-01-09 06:49 | Day surgery (SDC) | payer MEDICARE, BC ==
[~2023-01-09] VITALS: Ht 172.7 cm; Wt 110.2 kg
[~2023-01-09 06:49] MED LIST changes: +NS 1,000 ML IV ONE
[2023-01-09] MEDS ORDERED: LIDOCAINE 2% 100MG/5ML SDV (FOR ANES.) As Ordered ONE (08:24)
[2023-01-09] MEDS ORDERED: propofoL 200 MG/20 ML VIAL As Ordered ONE ×2 (08:24→08:31)
[2023-01-09] MEDS ORDERED: ESMOLOL INJ 100MG/10ML VIAL As Ordered ONE (08:33)
[2023-01-09 09:20] VITALS: BP 128/63
== END 2023-01-09 09:37 | disposition home or self-care (01) ==
LOC: M OPP 06:49
PROVIDERS: ATTEND Internal Medicine Gastroenterology
DX: Z12.11 Encounter for screening for malignant neoplasm of colon (principal); Z86.010 Personal history of colon polyps; D12.6 Benign neoplasm of colon, unspecified; K64.4 Residual hemorrhoidal skin tags; K64.8 Other hemorrhoids; K44.9 Diaphragmatic hernia without obstruction or gangrene; K21.00 Gastro-esophageal reflux disease with esophagitis, without bleeding; K31.89 Other diseases of stomach and duodenum; K29.70 Gastritis, unspecified, without bleeding; I10 Essential (primary) hypertension; E11.9 Type 2 diabetes mellitus without complications; G47.33 Obstructive sleep apnea (adult) (pediatric); Z79.02 Long term (current) use of antithrombotics/antiplatelets; Z79.82 Long term (current) use of aspirin; Z79.84 Long term (current) use of oral hypoglycemic drugs; Z79.51 Long term (current) use of inhaled steroids; Z79.891 Long term (current) use of opiate analgesic; Z79.899 Other long term (current) drug therapy; Z85.46 Personal history of malignant neoplasm of prostate; Z87.891 Personal history of nicotine dependence; Z80.1 Family history of malignant neoplasm of trachea, bronchus and lung

== ENCOUNTER → 2023-02-07 | Outpatient (CLI) | payer MEDICARE, BC ==
[~2023-02-07] MED LIST changes: +BICA50TA9 PO; +FARX1TAB3 PO; +IRON325T9 PO; +MAGN400C PO; -NS 1,000 ML IV ONE; +OMEP-173 PO
== END ==
LOC: M ONCR 14:43
PROVIDERS: ATTEND General Practice
DX: C61 Malignant neoplasm of prostate (principal); N40.1 Benign prostatic hyperplasia with lower urinary tract symptoms; R35.1 Nocturia; R35.0 Frequency of micturition; R19.4 Change in bowel habit; N52.9 Male erectile dysfunction, unspecified; E11.9 Type 2 diabetes mellitus without complications; I10 Essential (primary) hypertension; E78.5 Hyperlipidemia, unspecified; Z79.82 Long term (current) use of aspirin; Z79.84 Long term (current) use of oral hypoglycemic drugs; Z79.899 Other long term (current) drug therapy; Z87.891 Personal history of nicotine dependence

== ENCOUNTER → 2023-02-14 | Outpatient (REF) | payer MEDICARE, BC | LOC: M LAB REF 13:06 | PROVIDERS: ATTEND Nurse Practitioner Family | DX: R19.7 Diarrhea, unspecified (principal) ==

== ENCOUNTER → 2023-02-27 | Outpatient (CLI) | payer MEDICARE, BC ==
[~2023-02-27] MED LIST changes: +CIPR750T2 PO; +LIDOCAINE 2% MDV 20ML VIAL SC ONE; +LIDOCAINE VISCOUS 2% SOLN 15ML UDC TOP ONE; +LORA1TAB4 PO
[2023-02-27 14:26] VITALS: BP 100/61
== END ==
LOC: M ONCR 13:46
PROVIDERS: ATTEND General Practice
DX: C61 Malignant neoplasm of prostate (principal)
CPT/HCPCS: 55874; 55876; A4648; C1889

== ENCOUNTER → 2023-03-13 | Outpatient (CLI) | payer MEDICARE, BC ==
[~2023-03-13] VITALS: Ht 175.3 cm; Wt 112.7 kg
[~2023-03-13] MED LIST changes: +LEUPROLIDE 45MG SYRINGE KIT (LUPRON DEPOT) (FOR ONCOLOGY) IM ONE; -LIDOCAINE 2% MDV 20ML VIAL SC ONE; -LIDOCAINE VISCOUS 2% SOLN 15ML UDC TOP ONE; +LORA1TAB23 PO; -LORA1TAB4 PO
== END ==
LOC: M ONCR 13:46
PROVIDERS: ATTEND General Practice
DX: C61 Malignant neoplasm of prostate (principal)
CPT/HCPCS: 96402; G0463; J9217

== ENCOUNTER → 2023-04-04 | Outpatient (RCR) | payer MEDICARE, BC ==
[~2023-04-04] MED LIST changes: -LEUPROLIDE 45MG SYRINGE KIT (LUPRON DEPOT) (FOR ONCOLOGY) IM ONE
== END ==
LOC: M ONCR 03-13 13:47
PROVIDERS: ATTEND General Practice
DX: C61 Malignant neoplasm of prostate (principal)

== ENCOUNTER 2023-05-01 14:18 | Outpatient (RCR) | payer MEDICARE, BC ==
[~2023-05-01 14:18] MED LIST changes: +FLOM0.4C39 PO
== END 2023-05-04 ==
LOC: M ONCR 14:18
PROVIDERS: ATTEND General Practice
DX: C61 Malignant neoplasm of prostate (principal)

== ENCOUNTER → 2023-07-25 | Outpatient (CLI) | payer MEDICARE, BC ==
[~2023-07-25] MED LIST changes: -DOXA2TAB3 PO; +DOXA2TAB61 PO
[2023-07-25 12:33] LABS: PROSTATIC SPECIFIC AG MONITOR 0.04 NG/ML (< 4.00)
== END ==
LOC: M ONCR 11:08
PROVIDERS: ATTEND Radiology Radiation Oncology
DX: C61 Malignant neoplasm of prostate (principal)

== ENCOUNTER → 2023-08-29 | Outpatient (CLI) | payer MEDICARE, BC | LOC: M SLEEP 20:00 | PROVIDERS: ATTEND Nurse Practitioner Family | DX: G47.61 Periodic limb movement disorder (principal) ==

== ENCOUNTER → 2023-09-13 | Outpatient (CLI) | payer MEDICARE, BC | LOC: M SLEEP 20:00 | PROVIDERS: ATTEND Nurse Practitioner Family | DX: G47.31 Primary central sleep apnea (principal); G47.61 Periodic limb movement disorder ==

== ENCOUNTER → 2023-10-09 | Outpatient (CLI) | payer MEDICARE, BC | LOC: M SLEEP 20:00 | PROVIDERS: ATTEND Nurse Practitioner Family | DX: G47.33 Obstructive sleep apnea (adult) (pediatric) (principal) ==

== ENCOUNTER → 2024-01-25 | Outpatient (CLI) | payer MEDICARE, BC ==
[~2024-01-25] MED LIST changes: -ASPI-161 PO; +ASPI-615 PO; +FERR325T14 PO; -IRON325T9 PO
[2024-01-25 11:18] LABS: PROSTATIC SPECIFIC AG MONITOR 0.04 NG/ML (< 4.00)
== END ==
LOC: M ONCR 09:44
PROVIDERS: ATTEND General Practice
DX: C61 Malignant neoplasm of prostate (principal)

== ENCOUNTER → 2024-01-30 | Outpatient (CLI) | payer MEDICARE, BC | LOC: M ONCR 14:24 | PROVIDERS: ATTEND General Practice | DX: C61 Malignant neoplasm of prostate (principal); Z79.51 Long term (current) use of inhaled steroids; Z79.899 Other long term (current) drug therapy; Z87.891 Personal history of nicotine dependence; Z92.29 Personal history of other drug therapy; Z92.3 Personal history of irradiation ==

== ENCOUNTER → 2024-05-22 | Outpatient (REF) | payer MEDICARE, BC ==
[~2024-05-22] MED LIST changes: +BICA50TA4 PO; -BICA50TA9 PO
== END ==
LOC: M LAB REF 10:56
PROVIDERS: ATTEND Nurse Practitioner Family
DX: R19.7 Diarrhea, unspecified (principal)

== ENCOUNTER → 2024-07-28 | Outpatient (CLI) | payer MEDICARE, BC ==
[~2024-07-28] MED LIST changes: +GABA-1635 PO; -GABA800T4 PO
== END ==
LOC: M PAIN 08:00
PROVIDERS: ATTEND Nurse Practitioner Family
DX: M51.16 Intervertebral disc disorders with radiculopathy, lumbar region (principal); M96.1 Postlaminectomy syndrome, not elsewhere classified; G89.29 Other chronic pain; M25.551 Pain in right hip; E11.40 Type 2 diabetes mellitus with diabetic neuropathy, unspecified; I10 Essential (primary) hypertension; M17.12 Unilateral primary osteoarthritis, left knee; E78.5 Hyperlipidemia, unspecified; G47.30 Sleep apnea, unspecified; K21.9 Gastro-esophageal reflux disease without esophagitis; Z85.46 Personal history of malignant neoplasm of prostate; Z87.891 Personal history of nicotine dependence; Z79.1 Long term (current) use of non-steroidal anti-inflammatories (NSAID); Z79.84 Long term (current) use of oral hypoglycemic drugs; Z79.82 Long term (current) use of aspirin; Z79.899 Other long term (current) drug therapy

== ENCOUNTER 2024-08-07 15:05 | Outpatient (CLI) | payer MEDICARE, BC ==
[2024-08-07 16:00] VITALS: BP 126/71; O2SAT 99
[2024-08-07] MEDS: FECAL MICROBIOTA, LIVE-JSLM 150ML BAG (REBYOTA) RC ONE (16:28)
== END 2024-08-07 16:55 ==
LOC: M INFU 15:05
PROVIDERS: ATTEND Nurse Practitioner Family
DX: A04.72 Enterocolitis due to Clostridium difficile, not specified as recurrent (principal)
CPT/HCPCS: G0455; J1440

== ENCOUNTER → 2024-08-13 | Outpatient (CLI) | payer MEDICARE, BC ==
[~2024-08-13] MED LIST changes: +PROHANCE 279.3MG/ML 15ML VIAL As Ordered ONE; +PROHANCE 279.3MG/ML 5ML VIAL As Ordered ONE
== END ==
LOC: M RAD 14:22
PROVIDERS: ATTEND Nurse Practitioner Family
DX: M54.16 Radiculopathy, lumbar region (principal); M96.1 Postlaminectomy syndrome, not elsewhere classified
CPT/HCPCS: 72158; A9576

== ENCOUNTER → 2024-08-19 | Outpatient (CLI) | payer MEDICARE, BC ==
[~2024-08-19] MED LIST changes: -PROHANCE 279.3MG/ML 15ML VIAL As Ordered ONE; -PROHANCE 279.3MG/ML 5ML VIAL As Ordered ONE
== END ==
LOC: M PAIN 14:45
PROVIDERS: ATTEND Nurse Practitioner Family
DX: M96.1 Postlaminectomy syndrome, not elsewhere classified (principal); M48.061 Spinal stenosis, lumbar region without neurogenic claudication; M51.16 Intervertebral disc disorders with radiculopathy, lumbar region; G89.29 Other chronic pain; E11.40 Type 2 diabetes mellitus with diabetic neuropathy, unspecified; I10 Essential (primary) hypertension; M17.12 Unilateral primary osteoarthritis, left knee; E78.5 Hyperlipidemia, unspecified; G47.30 Sleep apnea, unspecified; K21.9 Gastro-esophageal reflux disease without esophagitis; Z87.891 Personal history of nicotine dependence; Z79.1 Long term (current) use of non-steroidal anti-inflammatories (NSAID); Z79.84 Long term (current) use of oral hypoglycemic drugs; Z79.82 Long term (current) use of aspirin; Z79.899 Other long term (current) drug therapy

== ENCOUNTER → 2024-10-17 | Outpatient (CLI) | payer MEDICARE, BC ==
[~2024-10-17] MED LIST changes: -ADV250INH INH; +ADVA1AER9 INH; +ISOVUE-M 300 61% 15ML VIAL As Ordered ONE; +LIDOCAINE 1% SDV 30ML VIAL As Ordered ONE; +NORCO, ANEXSIA 5/325MG TABLET (HYDROcodone/ACETAMINOPHEN) As Ordered ONE; +dexAMETHasone 10MG/1ML VIAL PRES.FREE As Ordered ONE; +diazePAM 5MG TABLET As Ordered ONE
== END ==
LOC: M PAIN 13:00
PROVIDERS: ATTEND Anesthesiology
DX: M51.16 Intervertebral disc disorders with radiculopathy, lumbar region (principal); G89.29 Other chronic pain; E11.42 Type 2 diabetes mellitus with diabetic polyneuropathy; I10 Essential (primary) hypertension; M17.12 Unilateral primary osteoarthritis, left knee; E78.5 Hyperlipidemia, unspecified; K21.9 Gastro-esophageal reflux disease without esophagitis; Z87.891 Personal history of nicotine dependence; Z79.84 Long term (current) use of oral hypoglycemic drugs; Z79.82 Long term (current) use of aspirin; Z79.899 Other long term (current) drug therapy
CPT/HCPCS: 62323; J1100; Q9967

== ENCOUNTER → 2025-01-29 | Outpatient (CLI) | payer MEDICARE, BC ==
[~2025-01-29] MED LIST changes: +GLIP-318 PO; -GLIP5TAB20 PO; -ISOVUE-M 300 61% 15ML VIAL As Ordered ONE; -LIDOCAINE 1% SDV 30ML VIAL As Ordered ONE; -NORCO, ANEXSIA 5/325MG TABLET (HYDROcodone/ACETAMINOPHEN) As Ordered ONE; -dexAMETHasone 10MG/1ML VIAL PRES.FREE As Ordered ONE; -diazePAM 5MG TABLET As Ordered ONE
== END ==
LOC: M ONCR 13:46
PROVIDERS: ATTEND General Practice
DX: C61 Malignant neoplasm of prostate (principal); Z79.82 Long term (current) use of aspirin; Z79.84 Long term (current) use of oral hypoglycemic drugs; Z79.85 Long-term (current) use of injectable non-insulin antidiabetic drugs; Z86.19 Personal history of other infectious and parasitic diseases; Z87.891 Personal history of nicotine dependence; Z92.29 Personal history of other drug therapy; Z92.3 Personal history of irradiation
CPT/HCPCS: 36415; 84153; G0463

== ENCOUNTER → 2025-07-01 | Outpatient (REF) | payer MEDICARE, BC ==
[~2025-07-01] MED LIST changes: -FLOM0.4C39 PO; +LISI40TA10 PO; -LISI40TA4 PO; +TAMS-18 PO
== END ==
LOC: M LAB REF 10:12
PROVIDERS: ATTEND Internal Medicine Gastroenterology
DX: A09 Infectious gastroenteritis and colitis, unspecified (principal)

== ENCOUNTER → 2025-09-15 | Outpatient (CLI) | payer MEDICARE, BC | LOC: M SOG 07:45 | PROVIDERS: ATTEND Orthopaedic Surgery | DX: M25.551 Pain in right hip (principal); M54.50 Low back pain, unspecified ==